=== PATIENT | male | born 1960 | race Caucasian/White ===

== ENCOUNTER 2017-03-25 12:05 | Inpatient (IN) ==
[2017-03-25] MEDS ORDERED: ONDANSETRON 4 MG/2 ML VIAL IV PRN (16:52)
[2017-03-25] MEDS ORDERED: ACETAMINOPHEN 325 MG TABLET PO PRN (16:52)
[2017-03-25] MEDS ORDERED: MORPHINE 2 MG/1 ML SYRINGE IV PRN (16:52)
[2017-03-25 17:42] LABS: ABG Base Excess 0.8 MMOL/L (-2.5-2.5); ABG HCO3 24.9 MMOL/L (20-26); ABG Oxygen Saturation 87.7 % (95-100); ABG PCO2 34.8 MM HG (35-48); ABG PH 7.452 (7.35-7.45); ABG PO2 56.3 MM HG (80-95); ABG TCO2 21.2 MMOL/L (23-27)
[2017-03-25 17:48] LABS: Basophils # 0.1 10*3/uL (0.0-0.2); Basophils % 0.6 % (0.0-0.8); Eosinophils # 0.5 10*3/uL (0.0-0.87); Eosinophils % 5.7 % (0.00-10.9); Hematocrit 39.9 VOL% (42.0-52.0); Immature Granulocytes % 1.1 %; Lymphocytes % 21.7 % (21.2-54.2); Mean Corpuscular HGB Conc 32.6 GM/DL (32-36); Mean Corpuscular Hemoglobin 31 PG (27-34); Mean Corpuscular Volume 95.7 FL (87-102); Mean Platelet Volume 8.8 FL (9.6-12.0); Monocytes # 0.6 10*3/uL (0.11-0.8); Monocytes % 6.8 % (1.7-12.7); Neutrophils % 64.1 % (38.7-73.9); Platelet Count 485 T/CUMM (130-400); Red Blood Count 4.17 MC/CUMM (3.8-5.5); Red Cell Distribution Width 14.3 % (9.3-17.3); White Blood Count 9.4 T/CUMM (4-12)
[2017-03-25] MEDS: PANTOPRAZOLE 40 MG TABLET PO SCH (17:52)
[2017-03-25 18:04] LABS: Calcium 8.8 MG/DL (8.5-10.1); Potassium 4.6 MMOL/L (3.5-5.1)
[2017-03-25] MEDS: PIPERACILLIN/TAZOBACTAM 3,375 MG in SODIUM CHLORIDE 0.9% 100 ML IV SCH (19:08)
[2017-03-25] MEDS: ALBUTEROL/IPRATROPIUM 3 ML NEB RESP TX SCH (20:35)
[2017-03-25] MEDS: oxyCODONE/ACETAMINOPHEN 5-325 MG TABLET PO PRN (20:38)
[2017-03-25] MEDS: CYCLOBENZAPRINE 10 MG TABLET PO SCH (20:39)
[2017-03-25] MEDS ORDERED: OSELTAMIVIR 75 MG CAPSULE PO SCH (21:00)
[2017-03-26] MEDS: ALBUTEROL/IPRATROPIUM 3 ML NEB RESP TX SCH ×4 (00:30→19:06)
[2017-03-26] MEDS: oxyCODONE/ACETAMINOPHEN 5-325 MG TABLET PO PRN ×5 (00:47→22:15)
[2017-03-26] MEDS: PIPERACILLIN/TAZOBACTAM 3,375 MG in SODIUM CHLORIDE 0.9% 100 ML IV SCH ×3 (01:24→17:01)
[2017-03-26 06:08] LABS: Basophils # 0.1 10*3/uL (0.0-0.2); Basophils % 0.8 % (0.0-0.8); Eosinophils # 0.5 10*3/uL (0.0-0.87); Eosinophils % 6.2 % (0.00-10.9); Hemoglobin 12.5 GM/DL (14.0-18.0); Immature Granulocytes % 0.8 %; Immature Granulocytes Absolute 0.06 #; Lymphocytes # 1.9 10*3/uL (1.4-4.0); Lymphocytes % 25.4 % (21.2-54.2); Mean Corpuscular HGB Conc 32.9 GM/DL (32-36); Mean Corpuscular Hemoglobin 31 PG (27-34); Mean Platelet Volume 8.8 FL (9.6-12.0); Monocytes # 0.7 10*3/uL (0.11-0.8); Monocytes % 8.9 % (1.7-12.7); Neutrophils # 4.4 10*3/uL (1.4-7.4); Neutrophils % 57.9 % (38.7-73.9); Platelet Count 432 T/CUMM (130-400); Red Cell Distribution Width 14.4 % (9.3-17.3); White Blood Count 7.6 T/CUMM (4-12)
[2017-03-26 06:45] LABS: Calcium 8.8 MG/DL (8.5-10.1); Osmolality,Calculated 275.7 MOS/KG (273-304); Potassium 4.3 MMOL/L (3.5-5.1)
[2017-03-26] MEDS: MELOXICAM 7.5 MG TABLET PO SCH (08:40)
[2017-03-26] MEDS: PANTOPRAZOLE 40 MG TABLET PO SCH (08:40)
[2017-03-26] MEDS: LORazepam 1 MG TABLET PO SCH (08:40)
[2017-03-26] MEDS: amLODIPine 5 MG TABLET PO SCH (08:40)
[2017-03-26] MEDS: BENAZEPRIL 10 MG TABLET PO SCH (08:40)
[2017-03-26] MEDS: CYCLOBENZAPRINE 10 MG TABLET PO SCH ×3 (08:40→20:20)
[2017-03-26] MEDS: buPROPion 100 MG TABLET PO SCH (08:40)
[2017-03-26] MEDS: methylPREDNISolone SOD SUC 40 MG/1 ML VIAL IV SCH ×2 (09:50→17:01)
[2017-03-27] MEDS: methylPREDNISolone SOD SUC 40 MG/1 ML VIAL IV SCH ×3 (01:16→17:47)
[2017-03-27] MEDS: PIPERACILLIN/TAZOBACTAM 3,375 MG in SODIUM CHLORIDE 0.9% 100 ML IV SCH ×3 (01:26→17:49)
[2017-03-27] MEDS: ALBUTEROL/IPRATROPIUM 3 ML NEB RESP TX SCH ×4 (01:31→19:48)
[2017-03-27] MEDS: oxyCODONE/ACETAMINOPHEN 5-325 MG TABLET PO PRN ×4 (03:06→20:42)
[2017-03-27 07:16] LABS: Basophils % 0.1 % (0.0-0.8); Hematocrit 40.5 VOL% (42.0-52.0); Hemoglobin 13.6 GM/DL (14.0-18.0); Immature Granulocytes % 0.9 %; Immature Granulocytes Absolute 0.09 #; Lymphocytes # 1.1 10*3/uL (1.4-4.0); Lymphocytes % 11.2 % (21.2-54.2); Mean Corpuscular HGB Conc 33.6 GM/DL (32-36); Mean Corpuscular Hemoglobin 31 PG (27-34); Mean Corpuscular Volume 93.3 FL (87-102); Mean Platelet Volume 8.9 FL (9.6-12.0); Monocytes # 0.2 10*3/uL (0.11-0.8); Neutrophils # 8.5 10*3/uL (1.4-7.4); Neutrophils % 85.8 % (38.7-73.9); Platelet Count 484 T/CUMM (130-400); Red Blood Count 4.34 MC/CUMM (3.8-5.5); White Blood Count 9.9 T/CUMM (4-12)
[2017-03-27 07:50] LABS: Calcium 9.2 MG/DL (8.5-10.1); Osmolality,Calculated 276.8 MOS/KG (273-304); Potassium 4.9 MMOL/L (3.5-5.1)
[2017-03-27] MEDS: MELOXICAM 7.5 MG TABLET PO SCH (09:18)
[2017-03-27] MEDS: BENAZEPRIL 10 MG TABLET PO SCH (09:21)
[2017-03-27] MEDS: CYCLOBENZAPRINE 10 MG TABLET PO SCH ×3 (09:21→20:43)
[2017-03-27] MEDS: PANTOPRAZOLE 40 MG TABLET PO SCH (09:21)
[2017-03-27] MEDS: buPROPion 100 MG TABLET PO SCH (09:21)
[2017-03-27] MEDS: LORazepam 1 MG TABLET PO SCH (09:21)
[2017-03-27] MEDS: amLODIPine 5 MG TABLET PO SCH (09:21)
[2017-03-27] MEDS ORDERED: BENZONATATE 100 MG CAPSULE PO PRN (21:00)
[2017-03-28] MEDS: oxyCODONE/ACETAMINOPHEN 5-325 MG TABLET PO PRN ×3 (01:02→12:58)
[2017-03-28] MEDS: methylPREDNISolone SOD SUC 40 MG/1 ML VIAL IV SCH ×2 (01:03→08:29)
[2017-03-28] MEDS: PIPERACILLIN/TAZOBACTAM 3,375 MG in SODIUM CHLORIDE 0.9% 100 ML IV SCH ×2 (01:06→09:54)
[2017-03-28] MEDS: ALBUTEROL/IPRATROPIUM 3 ML NEB RESP TX SCH ×2 (02:14→07:21)
[2017-03-28 04:52] LABS: Basophils % 0.1 % (0.0-0.8); Hematocrit 37.6 VOL% (42.0-52.0); Hemoglobin 12.4 GM/DL (14.0-18.0); Immature Granulocytes % 1.1 %; Immature Granulocytes Absolute 0.12 #; Lymphocytes % 8.6 % (21.2-54.2); Mean Corpuscular Hemoglobin 31 PG (27-34); Mean Corpuscular Volume 94.2 FL (87-102); Mean Platelet Volume 9.1 FL (9.6-12.0); Monocytes # 0.3 10*3/uL (0.11-0.8); Monocytes % 2.8 % (1.7-12.7); Neutrophils # 9.8 10*3/uL (1.4-7.4); Neutrophils % 87.4 % (38.7-73.9); Platelet Count 492 T/CUMM (130-400); Red Blood Count 3.99 MC/CUMM (3.8-5.5); Red Cell Distribution Width 14.2 % (9.3-17.3); White Blood Count 11.2 T/CUMM (4-12)
[2017-03-28 05:22] LABS: Calcium 9.1 MG/DL (8.5-10.1); Osmolality,Calculated 281.7 MOS/KG (273-304); Potassium 4.7 MMOL/L (3.5-5.1)
[2017-03-28] MEDS: LORazepam 1 MG TABLET PO SCH (08:28)
[2017-03-28] MEDS: buPROPion 100 MG TABLET PO SCH (08:28)
[2017-03-28] MEDS: MELOXICAM 7.5 MG TABLET PO SCH (08:28)
[2017-03-28] MEDS: CYCLOBENZAPRINE 10 MG TABLET PO SCH (08:28)
[2017-03-28] MEDS: PANTOPRAZOLE 40 MG TABLET PO SCH (08:28)
[2017-03-28] MEDS: amLODIPine 5 MG TABLET PO SCH (08:28)
[2017-03-28] MEDS: BENAZEPRIL 10 MG TABLET PO SCH (08:29)
[2017-03-28 11:39] VITALS: BP 124/68
[2017-03-28] MEDS ORDERED: LEVOFLOXACIN 750 MG TABLET PO SCH (18:00)
== END 2017-03-28 13:58 | disposition home or self-care (01) | DRG 190 ==
LOC: N.2E → SUATTDRO 16:51
PROVIDERS: ATTEND Internal Medicine Infectious Disease